=== PATIENT | male | born 1970 | race Caucasian/White ===

== ENCOUNTER 2017-06-25 12:14 | Inpatient (IN) | payer OTHER ==
[2017-06-25] VITALS (8 sets, daily range): BP systolic 158–198; BP diastolic 111–144
[~2017-06-25] VITALS: Ht 175.3 cm; Wt 99.3 kg
--- NOTE | ~2017-06-25 | EKG ---
[place] [address] ELECTROCARDIOGRAM REPORT Name: SCARLET RICHARDS Room: [address] ADM IN [facility].#: [id number] Admission: 06/25/17 Attend Phys: Quoc Leal MD, F Discharge: Date of : 72 Report #: [id number] THIS REPORT FOR: //name// [facility] Test Date: 2017-06-25 Test Time: 15:28:57 Pat Name: PATRICIAMARIONBART RICHARDS Department: Room: [facility] Gender: M Pastry Wrapper: LISA : 1970 Requested By: Delta Church Order Number: [id number] MD: Measurements Intervals [place] Rate: 111 P: 73 MO: 152 QRS: 63 QRSD: 84 T: 84 QT: 323 QTc: 439 Interpretive Statements Sinus tachycardia Anterolateral infarct, acute (LAD) Compared to ECG 08/08/2016 08:08:30 Prolonged QT interval no longer present Myocardial infarct finding still present [email or web address] By: 1528 1528 Epiphany Epiphany, /EPI
[~2017-06-25 12:14] MED LIST: ASPIR 8181 MG PO; ATORVASTATIN CA40 MG PO; COREG6.25 MG PO; EFFIENT10 MG PO; LISINOPRIL10 MG PO; NITROGLYCERIN0.4 MG PO; PLAVIX 75 MG TA75 M1 PO; TYLENOL325 MG PO
[2017-06-25 12:36] LABS: ABSOLUTE BASOPHILS 0.1 thou/uL (0.0-0.2); ABSOLUTE EOSINOPHILS 0.6 thou/uL (0.0-0.7); ABSOLUTE LYMPHOCYTES 4.6 thou/uL (0.8-5.3); ABSOLUTE MONOCYTES 1.3 thou/uL (0.0-1.2); ABSOLUTE NEUTROPHILS 11.7 thou/uL (1.6-8.1); BASOPHILS 0.6 %; EOSINOPHILS 3.1 %; HEMATOCRIT 47.6 % (42.0-52.0); MCH 27.3 pg (26.0-34.0); MCHC 33.7 g/dL (28.0-37.0); MONOCYTES 7.3 %; MPV 7.9 fl. (7.2-11.1); NUCLEATED RBCS 0 /100WBC; PLATELET COUNT* 341 thou/uL (150-400); RBC 5.87 mil/uL (4.50-6.00); RDW-CV 14.3 % (10.5-14.5); WBC 18.3 thou/uL (4.0-11.0)
[2017-06-25 12:45] LABS: ANION GAP 18 mmol/L (7-16); BUN 13 mg/dL (7-18); CALCIUM 9.1 mg/dL (8.5-10.1); CHLORIDE 102 mmol/L (98-107); CO2 16 mmol/L (21-32); CREATININE 1.3 mg/dL (0.6-1.3); GLUCOSE 183 mg/dL (70-99); POTASSIUM 3.2 mmol/L (3.5-5.1); SODIUM 136 mmol/L (136-145)
[2017-06-25 12:48] LABS: APTT 24.6 Seconds (25.0-31.3); INR 1.1; PROTIME 10.3 Seconds (9.20-11.50)
[2017-06-25 13:04] LABS: ALBUMIN 3.8 g/dL (3.4-5.0); ALKALINE PHOSPHATASE 87 U/L (46-116); CK-MB MASS < 0.5 ng/mL (<0.5-3.6); LIPASE 391 U/L (73-393); MAGNESIUM 1.7 mg/dL (1.8-2.4); NT-PRO BRAIN NAT PEPTIDE 30 pg/mL (<300); SGOT 22 U/L (15-37); SGPT 36 U/L (30-65); TOTAL BILIRUBIN 0.8 mg/dL (<0.1-1.0); TOTAL PROTEIN 8.1 g/dL (6.4-8.2); TROPONIN-I LEVEL <0.06 ng/mL (<0.06)
--- NOTE | 2017-06-25 16:42 | EKG ---
[place] [address] ELECTROCARDIOGRAM REPORT Name: SCARLET RICHARDS Room: [address] ADM IN .R.#: [id number] Admission: 06/25/17 Attend Phys: Quoc Leal MD, F Discharge: Date of : 72 Report #: [id number] THIS REPORT FOR: //name// [facility] Test Date: 2017-06-25 Test Time: 15:28:57 Pat Name: SCARLET RICHARDS Department: Room: [address] Gender: M Website Programmer: LISA : 1970 Requested By: Quoc Leal Order Number: [id number] Sameer MD: Quoc Leal Measurements Intervals [place] Rate: 111 P: 73 SC: 152 QRS: 63 QRSD: 84 T: 84 QT: 323 QTc: 439 Interpretive Statements Sinus tachycardia Anterolateral infarct, acute (LAD) Compared to ECG 08/08/2016 08:08:30 Prolonged QT interval no longer present Myocardial infarct finding still present Electronically Signed On 06-25-2017 16:42:01 ROLL RECLAIMER by Quoc Leal [email or web address] <ELECTRONICALLY SIGNED> By: Quoc Leal MD, [facility] 06/25/17 1642 1528 1528 Quoc Leal MD, [facility] /EPI
--- NOTE | 2017-06-25 17:35 | CARD ---
[address] [address] CARDIAC CATH REPORT Name: SCARLET RICHARDS Room: [address] IN [facility]#: [id number] Admission: 06/25/17 Attend Phys: Quoc Leal MD, F Discharge: Date of : 72 Report #: [id number] THIS REPORT FOR: //name// APPROVED REPORT Patient Details Patient Status: ED Room #: The patient is a 46 year-old male Event Personnel Quoc Leal Dip Stand Loader, Taisha Quintero RN Tractor Engine Assembler, Quang Wagner Langston, Anthony ARRT (R) Monitor Procedures Performed INDIGO Place w/wo Plasty Single LAD Indication STEMI (>0 to less than or equal to 6 hours) Risk Factors Arterial Hypertension, Hypercholesterolemia Previous Procedures/Diagnoses Previous PCI, Previous IL Admission/Lab Medications/Medications given during procedure Platelet Aff. Inhib., Heparin Unfract. Procedure Narrative The patient was brought emergently to the Cardiac Catheterization Laboratory and was prepped and draped in a sterile manner. The right femoral was infiltrated with 1% Lidocaine subcutaneous anesthesia. A 6fr Ultimum Sheath sheath was inserted into the Right Femoral Artery. Coronary angiography was performed using coronary diagnostic catheters. The right coronary system was accessed and visualized with a Diagnostic 3DRC catheter. The left coronary system was accessed and visualized with a Diagnostic JL4 catheter. The left ventricle was accessed and visualized with a Diagnostic Angled Pig catheter. Left ventricular/Aortic Valve gradient assessed via catheter pullback. Left ventriculogram was performed in ALBARADO projection. Closure device was deployed with a 6 Fr Angioseal STS. The patient tolerated the procedure well and there were no complications associated with the procedure. There was no hematoma[place] [address] CARDIAC CATH REPORT Name: SCARLET RICHARDS Room: [address] IN [facility]#: [id number] Admission: 06/25/17 Attend Phys: Quoc Leal MD, F Discharge: Date of : 72 Report #: [id number] Sedation start time: 12:27 Case end Time: 13:23 Fentanyl 75 mcg Versed 4 mg Fluoro Time: 14.0 minutes Dose: DAP 990286 cGycm2 2658 mGy Contrast Type and Amount: Visipaque 345 ml Coronary Angiography The patient's coronary anatomy is co- dominant. Diagnostic Cath Left Main 0% stenosis LAD proximal stent noted that covered the takeoff of the diagonal branch Lad appeared acutely occluded proximal to the stent Diagonal 1 stent noted in the ostium that was completely occluded Circumflex 0% stenosis OM1 small vessel with 80% long stenosis Right Coronary mid stent noted without restenosis Left Ventriculography The left ventricular ejection fraction is estimated to be 25-30%. Left ventricular wall motion abnormalities are present. There is no mitral insufficiency. akinesis noted of the mid and distal anterior wall and apex Hemodynamics The aortic pressure is 172/113 mmHg with a mean of 95 mmHg. The left ventricular pressure is 163/12 mmHg with a mean of mmHg. The left ventricular end diastolic pressure is 24 mmHg. There was no gradient across the aortic valve upon pullback. Pullback from the left ventricle to the aorta revealed no gradient across the aortic valve. PCI Technique Lesion Anticoagulation was achieved with Heparin. Patient was preloaded with Heparin IV 6000 units. Percutaneous coronary intervention was performed on the proximal left anterior descending artery segment. A 6F XB LAD 3.5 Guide Catheter was used to engage the ostium. A IG: BMW 190cm Interventional Guidewire was used to cross the lesion. BALLOON DILATION A Balloon catheter Trek RX 2.5 X 8 was inserted and inflated up to 16.00atm for 14seconds. Additional Inflation: 16.00at[place] [address] CARDIAC CATH REPORT Name: SCARLET RICHARDS Room: [address]#: [id number] Admission: 06/25/17 Attend Phys: Quoc Leal MD, F Discharge: Date of : 72 Report #: [id number] 7seconds. STENT DEPLOYMENT A drug-eluting stent Xience Alpine RX 2.75X18 was inserted and inflated up to 10.00atm for 13seconds. Additional Inflation: 11.00atm for 11seconds. PCI Technique Lesion Anticoagulation was achieved with . iv aggrastat was given BALLOON DILATION A Balloon catheter was inserted and inflated up to 14atm for 15seconds. Repeat angiography revealed the following post-dilatation results: 80% stenosis. STENT DEPLOYMENT A drug-eluting stent 2.75 x 18 mm was inserted and inflated up to 16atm for 15seconds. Repeat angiography revealed the following post-stent deployment results: 0% stenosis. Final angiography reveals 0 % stenosis with SOPHIE 3 flow. PCI Technique Lesion 2 Percutaneous Coronary Intervention was performed on the first diagnonal branch segment. Percutaneous coronary intervention was performed on the first diagonal branch segment. The lesion stenosis prior to intervention was 100% with SOPHIE 3 flow. A 6F XB LAD 3.5 Guide Catheter was used to engage the lm ostium. A IG: BMW 190cm Interventional Guidewire was used to cross the lesion. Balloon Dilation A Balloon catheter Mini Trek RX 2.0 X 8 was inserted and inflated up to 8.00atm for 7seconds. Repeat angiography revealed the following post-dilatation results: 80% stenosis. although the stent in the diagonal artery was wired, a balloon could not be advanced into the vessel. After a stent was placed in the lad, the diagonal artery was rewired with a whisper wire, but still a balloon could not be advanced into the diagonal stent. This appeared to be secondary to the stent struts in the lad, or previous crushing of the proximal portion of the stent in the diagonal artery. Final angiography reveals 80 % stenosis with SOPHIE 3 flow. Conclusion 1. Acute occlusion of the proximal lad [place] [address] CARDIAC CATH REPORT Name: SCARLET RICHARDS Room: [address] IN [facility]#: [id number] Admission: 06/25/17 Attend Phys: Quoc Leal MD, F Discharge: Date of : 72 Report #: [id number] stent. 2. no restenosis of a stent in the rca 3. successful placement of a stent in the proximal lad 4. although there was reperfusion of the 1st diagonal branch that arose from within the stent in the lad, a balloon could not be advanced into the vessel despite successful placement of a wire into the vessel. Residual ostial diagonal stenosis of 80%. Recommendations Cardiac Rehabilitation Referral Aggressive Medical Therapy <ELECTRONICALLY SIGNED> By: Quoc Leal MD, [facility] 06/25/17 1734 1734 1734Dhollie Leal MD, FACC /INF
[2017-06-26] VITALS (17 sets, daily range): BP systolic 119–161; BP diastolic 86–113
[2017-06-26 05:23] LABS: HEMATOCRIT 45.3 % (42.0-52.0); HEMOGLOBIN 15.2 gm/dL (14.0-18.0); MCH 27.4 pg (26.0-34.0); MCHC 33.5 g/dL (28.0-37.0); MCV 81.8 fL (80.0-100.0); RBC 5.54 mil/uL (4.50-6.00); RDW-CV 14.7 % (10.5-14.5); WBC 19.7 thou/uL (4.0-11.0)
[2017-06-26 06:27] LABS: ANION GAP 14 mmol/L (7-16); BUN 14 mg/dL (7-18); CALCIUM 9.2 mg/dL (8.5-10.1); CHLORIDE 103 mmol/L (98-107); CHOLESTEROL 166 mg/dL (<200); CO2 22 mmol/L (21-32); CREATININE 0.9 mg/dL (0.6-1.3); GLUCOSE 190 mg/dL (70-99); HDL CHOLESTEROL 37 mg/dL (>40); LDL CHOLESTEROL 115 mg/dL (<100); SODIUM 139 mmol/L (136-145); TC:HDL 4.5 Ratio (Not establshd); TRIGLYCERIDE 73 mg/dL (<150); VLDL 15 mg/dL (<40)
[2017-06-26 06:29] LABS: POTASSIUM 4.4 mmol/L (3.5-5.1); SERUM ASSESSMENT Clear
[2017-06-26 06:30] LABS: TROPONIN-I LEVEL 92.81 ng/mL (<0.06)
--- NOTE | 2017-06-26 12:57 | EKG ---
[place] [address] ELECTROCARDIOGRAM REPORT Name: SCARLET RICHARDS Room: [address] ADM IN [facility]#: [id number] Admission: 06/25/17 Attend Phys: Quoc Leal MD, F Discharge: Date of : 72 Report #: [id number] THIS REPORT FOR: //name// [facility] Test Date: 2017-06-25 Test Time: 21:18:38 Pat Name: SCARLET RICHARDS Department: Room: [facility] Gender: M Chocolate Molder: DAVONTE SANDOVAL : 1970 Requested By: Quoc Leal Order Number: [id number] Reading MD: Quoc Leal Measurements Intervals [place] Rate: 165 P: 93 VT: 172 QRS: 36 QRSD: 73 T: 92 QT: 274 QTc: 454 Interpretive Statements Supraventricular tachycardia Abnormal lateral Q waves Probable anteroseptal infarct, recent Compared to ECG 06/25/2017 15:28:57 Atrial abnormality now present Myocardial infarct finding still present Electronically Signed On 06-26-2017 12:57:36 MECHANICAL INTEGRITY SPECIALIST by Quoc Leal [email or web address] <ELECTRONICALLY SIGNED> By: Quoc Leal MD, FACC 06/26/17 1257 17 17 Quoc Leal MD, FAC /EPI
--- NOTE | 2017-06-26 13:04 | EKG ---
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
[2017-06-26 18:58] LABS: CALCIUM 9.2 mg/dL (8.5-10.1); POTASSIUM 4.2 mmol/L (3.5-5.1)
[2017-06-26 21:12] LABS: GLYCOHEMOGLOBIN (HGB A1C) 6.4 % (4.8-5.6)
[2017-06-27] VITALS (12 sets, daily range): BP systolic 111–139; BP diastolic 79–103
--- NOTE | 2017-06-27 10:37 | EKG ---
[place] [address] ELECTROCARDIOGRAM REPORT Name: SCARLET RICHARDS Room: [address] ADM IN [facility]#: [id number] Admission: 06/25/17 Attend Phys: Quoc Leal MD, F Discharge: Date of : 72 Report #: [id number] THIS REPORT FOR: //name// [facility] Test Date: 2017-06-27 Test Time: 08:19:10 Pat Name: SCARLET RICHARDS Department: Room: [facility] Gender: M Associate Software Application Engineer: : 1970 Requested By: Quoc Leal Order Number: [id number] Reading MD: Quoc Leal Measurements Intervals [place] Rate: 98 P: 25 WI: 142 QRS: 19 QRSD: 85 T: 154 QT: 499 QTc: 638 Interpretive Statements Sinus rhythm Anterior infarct, recent Lateral leads are also involved Prolonged QT interval Compared to ECG 06/26/2017 08:52:38 Sinus tachycardia no longer present Myocardial infarct finding still present Electronically Signed On 06-27-2017 10:37:26 PARALEGAL ASSISTANT by Quoc Leal [email or web address] <ELECTRONICALLY SIGNED> By: Quoc Leal MD, [facility] 06/27/17 1037 08 08 Quoc Leal MD, [facility] /EPI
[2017-06-27] MEDS ORDERED: CARVEDILOL12.5 MG PO (10:45)
[2017-06-27] MEDS ORDERED: LISINOPRIL5 MG PO (10:45)
[2017-06-27] MEDS ORDERED: ALDACTONE25 MG PO (10:51)
--- NOTE | 2017-06-27 18:15 | H ---
[address] [address] HISTORY AND PHYSICAL Name: SCARLET RICHARDS Room: [address] IN [facility]#: [id number] Admission: 06/25/17 Attend Phys: Quoc Leal MD, F Discharge: 06/27/17 Date of : 72 Report #: [id number] THIS REPORT FOR: //name// CC: Quoc Leal [facility] physician/PCP DATE OF SERVICE: 06/25/2017 HISTORY OF PRESENT ILLNESS: The patient is a 46-year-old single white male who came to the Emergency Room complaining of chest pain. The patient initially presented here to [facility] in July 2015. He had no previous history of heart disease. He did have a history of hypertension, but had never been on medications. He was a smoker at that time. Unfortunately, had no medical insurance. He presented with prolonged chest pain. ECG showed evidence of an acute high lateral STEMI. Dr. Christine took him urgently to the lab specialist. The codominant right coronary artery had no high-grade stenosis. The circumflex gave off a large first marginal branch, a long 80% stenosis. The LAD gave off first diagonal branch, had a discrete 90% ostial stenosis with thrombus. I placed a single bare-metal stent in the diagonal artery. Ejection fraction is 25%. He was loaded with Plavix. He was then noted to have a peak troponin. He was discharged on carvedilol 6.25 mg twice a day, Lipitor 40 mg a day, aspirin 81 mg a day, Plavix 75 mg a day, lisinopril 10 mg a day. He did return to our office for followup. He then presented a year later in August 2016 with intermittent chest pain. He had stopped taking his medication 2 weeks prior to admission. ECG showed evidence of anterior STEMI. Dr. Hanson took him to the lab specialist and was noted to have a 90% mid LAD stenosis with thrombus. He then placed a drug-eluting stent in the LAD and performed balloon angioplasty of the ostium of the diagonal. Dr. Hanson then brought him back several days later and placed a drug-eluting stent in the mid right coronary artery. Ejection fraction 45%. The LAD stent had no restenosis. The patient was then discharged on Effient. He notes he then did well with only intermittent chest pain. Unfortunately, he ran out of his medications 2 months ago. He has been taking the aspirin and Plavix. He was at home today when he felt a pain in his chest, became short of breath, nauseated, diaphoretic. Paramedics were called. ECG showed evidence of an anterior STEMI. He was brought to [facility] on an urgent basis. He denies recent exertional dyspnea, palpitations, syncope, bleeding. PAST MEDICAL HISTORY: Otherwise significant for no major surgical procedures. He does have a history of hypertension and hyperlipidemia. CURRENT MEDICATIONS: Include only aspirin and Plavix. ALLERGIES: He has no known drug allergies. FAMILY HISTORY: [place] [address] HISTORY AND PHYSICAL Name: SCARLET RICHARDS Room: [address]#: [id number] Admission: 06/25/17 Attend Phys: Quoc Leal MD, F Discharge: 06/27/17 Date of : 72 Report #: [id number] SOCIAL HISTORY: He is single, never been and lives in [place]. 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 He has no insurance. Quit smoking after his first heart attack. He does use vaporized drugs. No alcohol abuse. He smokes marijuana occasionally. REVIEW OF SYSTEMS: No history of stroke, asthma, peptic ulcer disease, liver disease, kidney disease, cancer, psychiatric illness. PHYSICAL EXAMINATION: GENERAL: Revealed a middle-aged male who appeared in mild distress. VITAL SIGNS: Blood pressure 130/70, pulse is 90. HEENT: Mucous membranes moist. He is anicteric. Conjunctivae pink. NECK: Veins nondistended. No carotid bruits. CHEST: Clear to auscultation. CARDIOVASCULAR: Regular rate and rhythm without murmur. ABDOMEN: Soft, nontender. EXTREMITIES: Had no edema. Posterior tibial pulse 2+ bilaterally. SKIN: Warm, dry. NEUROLOGIC: Nonfocal. His ECG done by the paramedics, sinus rhythm, ST segment elevation V2 through V6. LABORATORY DATA: Today, sodium 136, potassium is only 3.2, BUN 13, glucose 183. Liver function studies are normal. Troponin 0.06. White blood cell count 18.3, hemoglobin 16.0. IMPRESSION AND RECOMMENDATIONS: 1. Anterior ST-elevation myocardial infarction. Recommend cardiac catheterization. 2. Hypertension. The patient ran out of his beta raulito and EBONI inhibitor. 3. Hyperlipidemia. The patient ran out of his statin drug. 4. Previous tobacco abuse. Fortunately, the patient no longer smokes. 5. Cardiomyopathy. The patient has been on an EBONI inhibitor and beta raulito. <ELECTRONICALLY SIGNED> By: Quoc Leal MD, FACC 06/27/17 1815 1353 1448Dadimitry Leal MD, FACC /nt
--- NOTE | 2017-07-08 12:38 | D ---
[address] [address] DISCHARGE SUMMARY Name: SCARLET RICHARDS Room: [address] IN ..#: [id number] Admission: 06/25/17 Attend Phys: Quoc Leal MD, F Discharge: 06/27/17 Date of : 72 Report #: [id number] THIS REPORT FOR: //name// CC: Quoc Leal [facility] physician/PCP DATE OF SERVICE: 06/27/2017 DISCHARGE DIAGNOSES: 1. Acute anterior wall ST segment elevation myocardial infarction. 2. Coronary artery disease. 3. Ischemic cardiomyopathy. 4. Atrial tachycardia. 5. Nonsustained ventricular tachycardia. 6. Previous tobacco abuse. CONSULTANTS: None. PROCEDURES: Emergent left heart catheterization with placement of a single drug-eluting stent left anterior descending artery via the femoral approach. HISTORY OF PRESENT ILLNESS: The patient is a 46-year-old single white male who came to the Emergency Room complaining of chest pain. The patient had a previous history of high blood pressure and smoking. He presented to [place] in 07/[address] segment elevation, high lateral myocardial infarction. He was seen by my partner, Dr. Christine and taken urgently to the cathode washer. Results showed a diagonal branch of the LAD that had a 90% proximal stenosis with thrombus. I performed balloon angioplasty and placed a single bare metal stent in the diagonal artery. Ejection fraction only 25%. His post-[place] course was uncomplicated. Unfortunately, he had no medical insurance. He was discharged on carvedilol, Lipitor, aspirin, Plavix, lisinopril. Unfortunately, the patient only returned once because of his lack of insurance. He then presented in 08/2016 after stopping all of his medications. He complained of chest pain, again was found to have anterior ST segment elevation myocardial infarction. He was seen urgently by my partner, Dr. Hanson at 4:00 in the morning. Urgent heart catheterization showed a 90% mid LAD where he placed a new drug-eluting stent. There was difficulty getting by the stent in the ostium of the diagonal branch. Apparently, he was able to dilate the ostium of the diagonal artery. This was consistent with in-stent restenosis. The right coronary had 80% stenosis and he brought him back to the cathode washer a day later and placed a stent in the right coronary artery. The patient was switched from Plavix to Effient and was discharged. Again, he had no insurance and stopped taking his medications a couple of months ago other than the aspirin and Plavix. He tried to go to [facility] but was unable to get into the clinic. He states he has had occasional chest pain. On the day of admission about 12:00 noon; however, he had severe chest pain, became diaphoretic [place] [address] DISCHARGE SUMMARY Name: SCARLET RICHARDS Room: [address] IN [facility]#: [id number] Admission: 06/25/17 Attend Phys: Quoc Leal MD, F Discharge: 06/27/17 Date of : 72 Report #: [id number] He called paramedics. He was found to have an evidence of an acute anterior STEMI which was activated. I was asked to see him on an emergent basis. He denies any recent fever, cough, bleeding. PAST MEDICAL HISTORY: Otherwise, significant for no other major surgical procedures. MEDICATIONS: He currently is taking only aspirin and Plavix. PHYSICAL EXAMINATION: VITAL SIGNS: His blood pressure was 180/100, pulse is 100. He was afebrile. HEENT: Mucous membranes are moist. CHEST: Clear to auscultation. CARDIAC: Regular rate and rhythm. ABDOMEN: Soft. EXTREMITIES: Had no edema. SKIN: Warm and dry. ECG showed sinus rhythm, anterior ST segment elevation. His workup included a chest x-ray that showed cardiomegaly, mild pulmonary vascular congestions. LABORATORY WORK: Sodium 135, blood sugar 140. Liver function studies were normal. His troponin on admission was 0.06. Cholesterol 166, triglyceride 73, HDL 37, LDL 115. White blood cell count 18.3, hemoglobin 16. HOSPITAL COURSE: The patient brought urgently to the cathode washer. I performed left heart catheterization from the right femoral artery. Results: There was a stent in the proximal LAD that covered the takeoff of the first diagonal branch. The LAD was completely occluded just proximal to the stent after the left main artery. Circumflex had no significant disease. The right coronary had a stent with no significant restenosis. I then performed emergent angioplasty reperfusion of the LAD that had clots. He was given IV heparin and Aggrastat. He claims he had been taking his Plavix. I then attempted angioplasty of the takeoff of the diagonal branch. However, I was not going through 2 stents as well as a stent in the ostium of the diagonal. Although I was able to wire the diagonal, I could not advance a balloon into the diagonal. Final arteriogram showed residual ostial stenosis 80% of the diagonal branch. It is decided to abandon further attempts at balloon angioplasty of the diagonal artery. He actually tolerated the procedure well and had no heart failure following the procedure. Ejection fraction, however, was only 25%. The patient had an Angio-Seal placed. He was then placed in the ICU. He had some persistent chest pain that resolved. Next day, the patient appeared to have an episode of an atrial tachycardia that did not respond to adenosine. I could not rule out atrial flutter. He was started on amiodarone. That night, he had an episode of nonsustained ventricular tachycardia up to 18 beats. He was started on his EBONI inhibitor, spironolactone and a beta-raluito. [place] [address] DISCHARGE SUMMARY Name: SCARLET RICHARDS Room: [address]#: [id number] Admission: 06/25/17 Attend Phys: Quoc Leal MD, F Discharge: 06/27/17 Date of : 72 Report #: [id number] drug. He was seen by the lead case manager because of lack of insurance. His prognosis is guarded due to his ischemic cardiomyopathy. Additional lab work during his hospitalization included an elevated blood sugar of 154 consistent with glucose intolerance. His peak troponin was 92 after he occluded his proximal LAD. TSH is 0.2, T4 1.25. Glycosylated hemoglobin was 6.4, again consistent with glucose intolerance. Followup hemoglobin was 15.2. The results of the hospitalization were discussed with the patient. He is felt to have a stent in the diagonal artery, 2 stents in the LAD and a stent in the right coronary artery. He is felt to have an ischemic cardiomyopathy. His prognosis is obviously guarded. Unfortunately, he had no medical insurance. I did recommend he attempt to obtain a primary care physician. He is scheduled to return to see my nurse practitioner in 1 week. He was not to do any aerobic exercise in the next few weeks and gradually increased his activity. He was to contact my office with recurrent chest pain, shortness of breath, bleeding or palpitations. If the patient obtains insurance in the future, he would be a candidate for defibrillator. DISCHARGE MEDICATIONS: He was discharged on lisinopril 10 mg twice a day, carvedilol 12.5 mg twice a day, spironolactone 25 mg a day, Plavix 75 mg a day, aspirin 81 mg a day, Lipitor 40 mg a day. At the time of discharge, he had a blood pressure of 130/90, his pulse is 90, he is afebrile. I did recommend he enroll in cardiac rehabilitation. 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 I recommend he continue to refrain from cigarettes and avoid the vapor that he was now using as well. <ELECTRONICALLY SIGNED> By: Quoc Leal MD, [facility] 07/08/17 1238 1615 1819Dadimitry Leal MD, [facility] /nt
== END 2017-06-27 13:42 | disposition home or self-care (01) | DRG 247 ==
LOC: M.ERS 12:14 → M.ICU 13:49 → M.TBA-CV 13:49 → M.ICU 14:20 → M.TBA-ER 06-26 12:14 → M.ICU 06-26 12:14
PROVIDERS: Family Medicine; Internal Medicine Cardiovascular Disease; ADMIT Internal Medicine Cardiovascular Disease
PROC: 4A023N7 Measurement of Cardiac Sampling and Pressure, Left Heart, Percutaneous Approach (ICD-10-PCS; principal; 2017-06-25)
PROC: 027034Z Dilation of Coronary Artery, One Artery with Drug-eluting Intraluminal Device, Percutaneous Approach (ICD-10-PCS; 2017-06-25)
PROC: B2111ZZ Fluoroscopy of Multiple Coronary Arteries using Low Osmolar Contrast (ICD-10-PCS; 2017-06-25)
PROC: B2151ZZ Fluoroscopy of Left Heart using Low Osmolar Contrast (ICD-10-PCS; 2017-06-25)
DX: I21.09 ST elevation (STEMI) myocardial infarction involving other coronary artery of anterior wall (principal); I47.1 Supraventricular tachycardia; E78.5 Hyperlipidemia, unspecified; I10 Essential (primary) hypertension; I25.10 Atherosclerotic heart disease of native coronary artery without angina pectoris; I25.5 Ischemic cardiomyopathy; Z82.49 Family history of ischemic heart disease and other diseases of the circulatory system; Z87.891 Personal history of nicotine dependence

== ENCOUNTER 2017-07-02 11:12 | Inpatient (IN) | payer OTHER ==
[2017-07-02] VITALS (16 sets, daily range): BP systolic 112–175; BP diastolic 51–135
[~2017-07-02] VITALS: Ht 175.3 cm; Wt 99.8 kg
[~2017-07-02 11:12] MED LIST changes: +ALDACTONE25 MG PO; +CARVEDILOL12.5 MG PO; +LISINOPRIL5 MG PO
[2017-07-02 11:28] LABS: ABSOLUTE BASOPHILS 0.1 thou/uL (0.0-0.2); ABSOLUTE EOSINOPHILS 0.1 thou/uL (0.0-0.7); ABSOLUTE NEUTROPHILS 13.9 thou/uL (1.6-8.1); BASOPHILS 0.4 %; EOSINOPHILS 0.4 %; HEMATOCRIT 47.2 % (42.0-52.0); HEMOGLOBIN 15.9 gm/dL (14.0-18.0); LYMPHOCYTES 11.6 %; MCH 27.4 pg (26.0-34.0); MCHC 33.6 g/dL (28.0-37.0); MCV 81.3 fL (80.0-100.0); MONOCYTES 5.8 %; MPV 8.2 fl. (7.2-11.1); NUCLEATED RBCS 0 /100WBC; PLATELET COUNT* 375 thou/uL (150-400); POLYS 81.8 %; RBC 5.81 mil/uL (4.50-6.00); RDW-CV 14.3 % (10.5-14.5); WBC 16.9 thou/uL (4.0-11.0)
[2017-07-02 11:36] LABS: CALCIUM 9.6 mg/dL (8.5-10.1); CREATININE 1.2 mg/dL (0.6-1.3)
[2017-07-02 11:51] LABS: APTT 26.1 Seconds (25.0-31.3); INR 1.1; PROTIME 10.5 Seconds (9.20-11.50)
[2017-07-02 11:53] LABS: ALBUMIN 3.8 g/dL (3.4-5.0); MAGNESIUM 1.9 mg/dL (1.8-2.4); TOTAL BILIRUBIN 0.9 mg/dL (<0.1-1.0); TOTAL PROTEIN 8.5 g/dL (6.4-8.2)
[2017-07-02 11:55] LABS: TROPONIN-I LEVEL 2.04 ng/mL (<0.06)
[2017-07-03] VITALS (11 sets, daily range): BP systolic 89–145; BP diastolic 53–101
[2017-07-03 05:37] LABS: HEMATOCRIT 42.2 % (42.0-52.0); HEMOGLOBIN 14.2 gm/dL (14.0-18.0); MCH 27.3 pg (26.0-34.0); MCHC 33.6 g/dL (28.0-37.0); MCV 81.2 fL (80.0-100.0); MPV 8.4 fl. (7.2-11.1); RBC 5.2 mil/uL (4.50-6.00)
[2017-07-03 06:10] LABS: ANION GAP 13 mmol/L (7-16); BUN 13 mg/dL (7-18); CALCIUM 8.9 mg/dL (8.5-10.1); CHLORIDE 100 mmol/L (98-107); CHOLESTEROL 94 mg/dL (<200); CO2 22 mmol/L (21-32); CREATININE 0.9 mg/dL (0.6-1.3); GLUCOSE 153 mg/dL (70-99); HDL CHOLESTEROL 35 mg/dL (>40); LDL CHOLESTEROL 46 mg/dL (<100); POTASSIUM 4.2 mmol/L (3.5-5.1); SODIUM 135 mmol/L (136-145); TC:HDL 2.7 Ratio (Not establshd); TRIGLYCERIDE 69 mg/dL (<150); VLDL 14 mg/dL (<40)
[2017-07-03 06:11] LABS: SERUM ASSESSMENT Clear
[2017-07-03 06:18] LABS: TROPONIN-I LEVEL 47.65 ng/mL (<0.06)
--- NOTE | 2017-07-03 06:23 | NUR ---
ASSUMED CARE OF PT AT 1900 PT ALERT AND ORIENTED X4. VS AND ASSESSMENT AT BASELINE FOR PT. ST ON THE MONITOR. R GROIN DRSG SATURATED WITH OLD BLOOD AREA SOFT NO HEMATOMA, CHANGED CMS CHECKS TO RLE WNL. PT HAD PRN PAIN MEDS TWICE FOR CHEST PAIN THAT IS NOT NEW OR INCREASED. WILL CONTINUE PLAN OF CARE
--- NOTE | 2017-07-03 12:06 | 2DMMODE ---
[place] [address] 2 D/M-MODE ECHOCARDIOGRAM Name: SCARLET RICHARDS [facility]#: [id number] Admission: 07/02/17 Attend Phys: Lucia Peña Discharge: Date of : 72 Date of Service: 07/03/17 1205 Report #: [id number] THIS REPORT FOR: //name// APPROVED REPORT Study performed: 07/03/2017 09:28:12 EXAM: Comprehensive 2D, Doppler, and color-flow Echocardiogram Patient Location: In-Patient Room #: 003 Status: routine BSA: 2.15 HR: 104 bpm BP: 110/77 mmHg Rhythm: NSR Other Information Study Quality: Good Indications Acute AL 2D Dimensions LVEF(%): 29.07 (>50%) IVSd: 16.47 (7-11mm) LVOT Diam: 20.19 (18-24mm) LVDd: 51.13 mm PWd: 10.70 (7-11mm) Ascending Ao: 34.07 (22-36mm) LVDs: 44.14 (25-40mm) Aortic Root: 32.43 mm Anderson's LVEF: 29.07 % Volumes Left Atrial Volume (Systole) LA ESV Index: 18.30 mL/m2 Aortic Valve AoV Peak Silvio.: 1.59 m/s AO Peak Gr.: 10.10 mmHg LVOT Max P.10 mmHg AO Mean Gr.: 6.08 mmHg LVOT Mean P.91 mmHg LVOT Max V: 1.23 m/s AO V2 VTI: 23.41 cm LVOT Mean V: 0.78 m/s GUANAKO (VTI): 2.48 cm2 LVOT V1 VTI: 18.14 cm Mitral Valve E/A Ratio: 0.62 [place] [address] 2 D/M-MODE ECHOCARDIOGRAM Name: SCARLET RICHARDS Room: [address] IN .R.#: [id number] Admission: 07/02/17 Attend Phys: Lucia Peña Discharge: Date of : 72 Date of Service: 07/03/17 1205 Report #: [id number] MV Decel. Time: 163.34 ms MV E Max Silvio.: 0.73 m/s MV PHT: 47.37 ms MVA (PHT): 4.64 cm2 TDI E/Lateral E': 10.43 E/Medial E': 14.60 Medial E' Silvio.: 0.05 m/s Lateral E' Silvio.: 0.07 m/s Pulmonary Valve PV Peak Silvio.: 1.31 m/s PV Peak Gr.: 6.84 mmHg Left Ventricle The left ventricle is normal size. There is severe hypokinesis to akinesis in the distal anterior wall anteroseptal wall and apex. Mild to moderate concentric hypertrophy. Left ventricular systolic function is moderately decreased. LVEF is 35-40%. Grade I - abnormal relaxation pattern. Right Ventricle The right ventricle is normal size. The right ventricular systolic function is normal. Atria Left atrium is mildly dilated. The right atrium size is normal. Aortic Valve The aortic valve is normal in structure. No aortic regurgitation is present. There is no aortic valvular stenosis. Mitral Valve The mitral valve is normal in structure. Mild mitral regurgitation. No evidence of mitral valve stenosis. Tricuspid Valve The tricuspid valve is normal in structure. Trace tricuspid regurgitation. Pulmonic Valve The pulmonary valve is normal in structure. There is no pulmonic valvular regurgitation. Great Vessels The aortic root is normal in size. IVC [place] [address] 2 D/M-MODE ECHOCARDIOGRAM Name: SCARLET RICHARDS Room: [address] IN ..#: [id number] Admission: 07/02/17 Attend Phys: Lucia Peña Discharge: Date of : 72 Date of Service: 07/03/17 1205 Report #: [id number] collapses with >50% inspiration Pericardium There is no pericardial effusion. <Conclusion> The left ventricle is normal size. Mild to moderate concentric hypertrophy. Left ventricular systolic function is moderately decreased. LVEF is 35-40%. Grade I - abnormal relaxation pattern. There is severe hypokinesis to akinesis in the distal anterior wall anteroseptal wall and apex. Left atrium is mildly dilated. IVC is normal in size and collapses with >50% inspiration <ELECTRONICALLY SIGNED> By: Alan Christine MD, FACC 07/03/171204 04 04 Alan Christine MD, FACC /INF
--- NOTE | 2017-07-03 12:43 | EKG ---
[place] [address] ELECTROCARDIOGRAM REPORT Name: SCARLET RICHARDS Room: [address] ADM IN M.R.#: [id number] Admission: 07/02/17 Attend Phys: Duong Hanson MD, Discharge: Date of : 72 Report #: [id number] THIS REPORT FOR: //name// [facility] ED Test Date: 2017-07-02 Test Time: 11:14:41 Pat Name: SCARLET MAURICE Department: Room: [facility] Gender: M Finishing Powder Press Operator: Derick PEREZ : 1970 Requested By: Rafa Renteria Order Number: [id number] MD: Alan Christine Measurements Intervals [place] Rate: 100 P: 50 NC: 151 QRS: 2 QRSD: 80 T: -26 QT: 352 QTc: 454 Interpretive Statements Sinus tachycardia Anterolateral infarct, acute (LAD) Compared to ECG 06/27/2017 08:19:10 Sinus rhythm no longer present Prolonged QT interval no longer present Myocardial infarct finding still present Electronically Signed On 07-03-2017 12:43:44 DIRECTOR OF LOSS PREVENTION by Alan Christine [email or web address] <ELECTRONICALLY SIGNED> By: Alan Christine MD, FACC 07/03/17 1243 1114 1114 Alan Christine MD, [facility] /EPI
--- NOTE | 2017-07-03 12:50 | EKG ---
[place] [address] ELECTROCARDIOGRAM REPORT Name: SCARLET RICHARDS Room: [address] ADM IN M.R.#: [id number] Admission: 07/02/17 Attend Phys: Duong Hanson MD, Discharge: Date of : 72 Report #: [id number] THIS REPORT FOR: //name// [facility] Test Date: 2017-07-02 Test Time: 16:23:17 Pat Name: SCARLET MAURICE Department: Room: [address] Gender: M Recruiting And Selection Consultant: [facility] : 1970 Requested By: Duong Hanson Order Number: [id number] Reading MD: Alan Christine Measurements Intervals [place] Rate: 105 P: 40 NV: 150 QRS: 71 QRSD: 97 T: 106 QT: 394 QTc: 521 Interpretive Statements Sinus tachycardia Anterior infarct, recent Prolonged QT interval Compared to ECG 06/27/2017 08:19:10 Q waves now present Sinus rhythm no longer present Myocardial infarct finding still present Electronically Signed On 07-03-2017 12:49:57 SALES PRODUCER by Alan Christine [email or web address] <ELECTRONICALLY SIGNED> By: Alan Christine MD, FACC 07/03/17 1249 1623 1623 Alan Christine MD, FAC /EPI
--- NOTE | 2017-07-03 12:53 | EKG ---
[place] [address] ELECTROCARDIOGRAM REPORT Name: SCARLET RICHARDS Room: [address] ADM IN M.R.#: [id number] Admission: 07/02/17 Attend Phys: Duong Hanson MD, Discharge: Date of : 72 Report #: [id number] THIS REPORT FOR: //name// [facility] Test Date: 2017-07-03 Test Time: 08:23:37 Pat Name: SCARLET RICHARDS Department: Room: [address] Gender: M [employer] Head: : 1970 Requested By: Duong Hanson Order Number: [id number] Sameer MD: Alan Christine Measurements Intervals [place] Rate: 95 P: 31 NC: 154 QRS: 60 QRSD: 90 T: 95 QT: 406 QTc: 511 Interpretive Statements Sinus rhythm Anterolateral infarct, acute (LAD) Prolonged QT interval Compared to ECG 06/27/2017 08:19:10 No significant changes Electronically Signed On 07-03-2017 12:53:37 QUARTZ CUTTER by Alan Christine [email or web address] <ELECTRONICALLY SIGNED> By: Alan Christine MD, [facility] 07/03/17 1253 2 2 Alan Christine MD, [facility] /EPI
--- NOTE | 2017-07-03 18:50 | NUR ---
RECEIVED REPORT FROM CHENCHO IN ICU. PT ARRIVED ON TELE FLOOR AT 1835, PLACED IN ROOM 226. PT A&O X4. DENIES PAIN, DISCOMFORT OR SHORTNESS OF AIR AT THIS TIME. PT STATES "I FEEL GOOD". PT REFUSED TO ALLOW BLOOD PRESSURE TO BE TAKEN. ALL OTHER VITAL SIGNS STABLE: TEMP 98.4, HR 105, O2 SAT 99% ON RA, RR 17. PT ORIENTED TO ROOM, BED AND CALL LIGHT. COMMUNICATES UNDERSTANDING. WILL GIVE REPORT TO CORK SORTER.
[2017-07-04 04:00] VITALS: BP 93/62
--- NOTE | 2017-07-04 04:27 | NUR ---
ASSUMED CARE OF PT AT 1930, NURSING ASSESSMENT COMPLETED AT START OF SHIFT, PT VOICED NO CONCERNS THIS SHIFT, DENIES CHEST PAIN. PT CONTINUES ON TELE MONITOR, TRACING SINUS SINUS RHYTHM THIS SHIFT, HOURLY ROUNDING COMPLETED, CALL LIGHT WITHIN REACH. PT PROGRESSING TOWARDS GOALS.
[2017-07-04 08:00] VITALS: BP 100/65
[2017-07-04 08:17] VITALS: BP 101/60
[2017-07-04] MEDS ORDERED: BRILINTA90 MG PO (10:33)
[2017-07-04 10:46] VITALS: BP 101/60
--- NOTE | 2017-07-04 13:00 | NUR ---
ASSUMED CARE OF PT THIS AM ASSESSED AND DOCUMENTED. SEE CHART. VSS WNL. PT D/C'D TO HOME. ALL CONSULTS OK WITH D/C. D/C'D CARDIAC MONITER AND IV. EDUCATION GIVEN RE: FOLLOW-UPS, MEDICATIONS, AND DRS ORDERS. SCRIPTS GIVEN EDUCATION ON BRELINTA PRINTED. ALL BELONGINGS PACKED UP AND LEFT WITH PT ACCOMPANIED BY A FRIEND AND STAFF.
--- NOTE | 2017-07-05 10:32 | CARD ---
[address] [address] CARDIAC CATH REPORT Name: SCARLET RICHARDS Room: [address]#: [id number] Admission: 07/02/17 Attend Phys: Duong Hanson MD, Discharge: 07/04/17 Date of : 72 Report #: [id number] THIS REPORT FOR: //name// APPROVED REPORT Patient Details Patient Status: ED Room #: Event Personnel Dr. Hanson Procedures Performed Left heart catheterization selective coronary arteriography and percutaneous coronary intervention with deployment of a drug-eluting stent at the site of 100% proximal LAD occlusion with prominent intraluminal thrombus Indication STEMI Risk Factors Family History, Hypercholesterolemia Previous Procedures/Diagnoses Previous PCI, Previous [place] Admission/Lab Medications/Medications given during procedure Aspirin, Glycoprotein IllbIlla Inhibitors, Platelet Aff. Inhib., Heparin Unfract. Procedure Narrative The patient was brought emergently to the Cardiac Catheterization Laboratory and was prepped and draped in a sterile manner. The right femoral was infiltrated with 1% Lidocaine subcutaneous anesthesia. A [place] 6 FR` sheath was inserted into the Right Femoral Artery. Coronary angiography was performed using coronary diagnostic catheters. The right coronary system was accessed and visualized with a Diagnostic 3DRC catheter. The left coronary system was accessed and visualized with a Diagnostic JL 4 catheter. The left ventricle was accessed and visualized with a Diagnostic catheter. Left ventricular/Aortic Valve gradient assessed . Pre-demployment femoral angiogram was performed . Closure device was deployed with a Fr Angioseal STS 6Fr. The patient tolerated the procedure well and there were no complications associated with the procedure. [place] [address] CARDIAC CATH REPORT Name: SCARLET RICHARDS Room: [address]#: [id number] Admission: 07/02/17 Attend Phys: Duong Hanson MD, Discharge: 07/04/17 Date of : 72 Report #: [id number] Intraoperative Conscious Sedation Sedation start time: 12:09 Case end Time: 13:10 Fentanyl mcg Fluoro Time: 34.8 minutes Dose: DAP 446178 cGycm2 2760 mGy Contrast Type and Amount: Visipaque 390 ml Diagnostic Cath Left Main 0% narrowing LAD 100% proximal LAD occlusion with prominent intraluminal thrombus and SOPHIE 0 flow to the distal vessel Diagonal 1 60% proximal first diagonal narrowing Circumflex Narrowing of the proximal portion of the first marginal branch Right Coronary Modest sized dominant vessel with 40% proximal mid and distal narrowings Left Ventriculography Left Ventriculography was not performed. Hemodynamics The aortic pressure is 161/113 mmHg with a mean of 134 mmHg. The left ventricular pressure is 159/7 mmHg with a mean of mmHg. The left ventricular end diastolic pressure is 27 mmHg. There was no gradient across the aortic valve upon pullback. PCI Technique Lesion Anticoagulation was achieved with Heparin. Patient [place] [address] units. Percutaneous coronary intervention was performed on the proximal left anterior descending artery segment. The lesion stenosis prior to intervention was 100% with SOPHIE 0 flow. A 6FR LAUNCHER JL4.0 Guide Catheter was used to engage the ostium. A Zipnosis: Ahalogy 300cm Interventional Guidewire was used to cross the lesion. BALLOON DILATION A Balloon catheter Mini Trek OTW 2X12 was inserted and inflated up to 16.00atm for 16seconds. Additional Inflation: 14.00atm for 9seconds. Additional Inflation: 18.00atm for 13seconds. STENT DEPLOYMENT A drug-eluting stent Xience Alpine RX 2.75X33 was inserted and inflated up to 12.00atm for 12seconds. Additional Inflation: 16.00atm [place] [address] CARDIAC CATH REPORT Name: SCARLET RICHARDS Room: [address]#: [id number] Admission: 07/02/17 Attend Phys: Duong Hanson MD, Discharge: 07/04/17 Date of : 72 Report #: [id number] for 15seconds. POST STENT DEPLOYMENT BALLOON DILATION A Balloon catheter NC Trek RX 3.0 X 12 was inserted and inflated up to 14.00atm for 13seconds. Additional Inflation: 17.00atm for 11seconds. Additional Inflation: 19.00atm for 15seconds. Final angiography reveals 10 % stenosis with SOPHIE 3 flow. PCI Technique Lesion 2 Percutaneous coronary intervention was performed on the distal left anterior descending artery segment. A 6FR LAUNCHER JL4.0 Guide Catheter was used to engage the ostium. A IG: [employer] Flex 300cm Interventional Guidewire was used to cross the lesion. Balloon Dilation A Balloon catheter Mini Trek RX 1.5 X 12 was inserted and inflated up to 8.00atm for 13seconds. Additional Inflation: 8.00atm for 8seconds. Additional Inflation: 12.00atm for 13seconds. Conclusion #[address] segment elevation myocardial infarction #2 significant coronary artery disease characterized by the following: A1 100% proximal LAD occlusion with prominent intraluminal thrombus with 60% proximal first diagonal narrowing noted after reperfusion of the LAD, C 40% narrowing of the proximal portion of the first marginal branch of the circumflex, D modest sized dominant right coronary artery with 40% proximal mid and distal narrowings #3 significant elevation of left ventricular end-diastolic pressure at rest #4 successful percutaneous coronary intervention with deployment of a drug-eluting stent at site of 100% proximal LAD occlusion with 10% residual narrowing following stent deployment and SOPHIE-3 flow the distal vessel with no residual thrombus Recommendations [place] [address] CARDIAC CATH REPORT Name: SCARLET RICHARDS Room: [address] IN [facility]#: [id number] Admission: 07/02/17 Attend Phys: Duong Hanson MD, Discharge: 07/04/17 Date of : 72 Report #: [id number] Cardiac Risk Reduction Program Aggressive Medical Therapy Medications Administered Aspirin (any) Ticagrelor <ELECTRONICALLY SIGNED> By: Duong Hanson MD, FACC 07/05/17 1032 103 103Jogennaro Hanson MD, FACC /INF
--- NOTE | 2017-07-05 10:48 | H ---
[place] [address] HISTORY AND PHYSICAL Name: SCARLET RICHARDS Room: [address]#: [id number] Admission: 07/02/17 Attend Phys: Duong Hanson MD, Discharge: 07/04/17 Date of : 72 Report #: [id number] THIS REPORT FOR: //name// CC: [facility] physician/PCP Rafa Hanson DATE OF SERVICE: 07/02/2017 HISTORY OF PRESENT ILLNESS: The patient is a 46-year-old male who presented last week with acute anterior wall myocardial infarction in the context of not taking antiplatelet therapy in the setting of prior LAD stenting. He underwent stenting of the LAD with dilatation of a prominent diagonal in the acute setting by Dr. Leal. He apparently by his description complied with dual antiplatelet therapy including aspirin and Plavix daily but developed recurrent chest discomfort which was severe this a.m. and he sought assistance in the Emergency Room. EKG there demonstrated ST segment elevation in the anterior precordial and high lateral leads suggesting acute anterior wall ST segment elevation myocardial infarction. He had severe pain when I assessed him in the ER and persistent EKG changes. Hemodynamics and rhythm are stable. Risk factors for coronary artery disease include prior cigarette smoking and hyperlipidemia. PHYSICAL EXAMINATION: GENERAL: Demonstrates an acutely distressed middle-aged male. VITAL SIGNS: Blood pressure 130/90, pulse rate is 78, respirations are 18 per minute. NECK: Jugular venous pressure is normal. CHEST: Clear anteriorly. CARDIAC: Reveals an S4 gallop. ABDOMEN: Soft. EXTREMITIES: Satisfactorily perfused without edema, clubbing or cyanosis. LABORATORY DATA: Electrocardiogram reveals acute anterior wall ST segment elevation myocardial infarction with high lateral involvement as well. IMPRESSION: 1. Acute anterior wall ST elevation myocardial infarction. 2. Coronary artery disease status post prior stenting of the left anterior descending; therefore, suspect acute stent thrombosis triggering the ST segment elevation infarction today. 3. Coronary artery disease. 4. Tobacco habituation. 5. [place] [address] HISTORY AND PHYSICAL Name: SCARLET RICHARDS Room: [address]#: [id number] Admission: 07/02/17 Attend Phys: Duong Hanson MD, Discharge: 07/04/17 Date of : 72 Report #: [id number] RECOMMENDATIONS: 1. The patient received aspirin and heparin in the ER. 2. We will plan emergent catheterization with consideration of acute coronary intervention contingent on results of the study. CRITICAL CARE TIME: 35 minutes, 13:15-13:50. <ELECTRONICALLY SIGNED> By: Duong Hanson MD, [facility] 07/05/17 1048 1359 1416Duong Hanson MD, FACC /nt
--- NOTE | 2017-07-05 10:49 | D ---
[address] [address] DISCHARGE SUMMARY Name: SCARLET RICHARDS Room: [address] IN M.R.#: [id number] Admission: 07/02/17 Attend Phys: Duong Hanson MD, Discharge: 07/04/17 Date of : 72 Report #: [id number] THIS REPORT FOR: //name// CC: [facility] physician/PCP Rafa Hanson DATE OF SERVICE: 07/04/2017 FINAL DISCHARGE DIAGNOSES: 1. Acute anterior wall ST segment elevation myocardial infarction. 2. Coronary artery disease, status post recent myocardial infarction. 3. Tobacco abuse. 4. Hyperlipoproteinemia. 5. Ischemic cardiomyopathy. PROCEDURES: 07/02/2017 -- left heart catheterization, selective coronary arteriotomy and percutaneous coronary intervention to the proximal LAD, totally occluded vessel in the context of acute anterior wall ST segment elevation infarction. The patient is a 46-year-old male with complex and aggressive coronary artery disease status post prior percutaneous coronary interventions, most recently approximately 1 week ago when he presented with stent thrombosis of the LAD and underwent intervention by Dr. Leal. He had been taking antiplatelet therapy, but was utilizing out of date Effient. He presented with recurrent stent thrombosis and had occlusion of the LAD on 07/02/2017. EKG revealed acute anterior wall ST segment elevation infarction. There is underlying hyperlipoproteinemia and tobacco habituation. He underwent emergent catheterization, which revealed total proximal LAD occlusion with prominent intraluminal thrombus. I performed stenting of the LAD, deploying one drug-eluting stent in the proximal LAD and post-dilating it to 3.25 mm with approximately a 10% residual narrowing. There was 50%-60% narrowing of the ostium of the diagonal that emanated from the stented LAD region. The patient did well post-procedurally. Troponin zulma to a peak of 47. Echocardiogram demonstrated an ejection fraction of 35%-40% with distal anterior, anteroapical, and distal septal hypo to akinesis. Remaining segments contracted normally. He ambulated in the hallways without difficulty and there was good hemostasis at the right femoral site of catheterization. Most recent laboratory pre-discharge revealed a hemoglobin of 14.2; white blood cell count of 18,000 with 398,000 platelets. Sodium 135, potassium 4.2, BUN 13, creatinine 0.9, glucose 153 [place] [address] DISCHARGE SUMMARY Name: SCARLET RICHARDS Room: [address]#: [id number] Admission: 07/02/17 Attend Phys: Duong Hanson MD, Discharge: 07/04/17 Date of : 72 Report #: [id number] He was discharged to home on the following medications: Aspirin 81 mg daily, atorvastatin 40 mg at bedtime, carvedilol 12.5 mg b.i.d., lisinopril 5 mg daily, spironolactone 25 mg daily, ticagrelor or Brilinta 90 mg b.i.d. with a 180 mg loading dose given periprocedurally, p.r.n. sublingual nitroglycerin. The patient is scheduled to return to see our nurse practitioner, Nidhi Davey on 07/09/2017 at 0930 with subsequent Cardiology followup at [facility]. <ELECTRONICALLY SIGNED> By: Duong Hanson MD, [facility] 07/05/17 1049 0923 [id number] Hanson MD, [facility] /nt
== END 2017-07-04 13:07 | disposition home or self-care (01) | DRG 247 ==
LOC: M.ERS 11:12 → M.CL 11:12 → M.ERS 11:34 → M.CL 11:41 → M.ICU 14:08 → M.TBA-CV 14:08 → M.ICU 14:22 → M.2W 07-03 18:24
PROVIDERS: Emergency Medicine Emergency Medical Services; ADMIT Internal Medicine
PROC: B211YZZ Fluoroscopy of Multiple Coronary Arteries using Other Contrast (ICD-10-PCS; principal; 2017-07-04)
PROC: 027034Z Dilation of Coronary Artery, One Artery with Drug-eluting Intraluminal Device, Percutaneous Approach (ICD-10-PCS; principal; 2017-07-04)
PROC: 4A023N7 Measurement of Cardiac Sampling and Pressure, Left Heart, Percutaneous Approach (ICD-10-PCS; principal; 2017-07-04)
DX: I21.09 ST elevation (STEMI) myocardial infarction involving other coronary artery of anterior wall (principal); F17.210 Nicotine dependence, cigarettes, uncomplicated; I25.10 Atherosclerotic heart disease of native coronary artery without angina pectoris; I25.5 Ischemic cardiomyopathy; E78.5 Hyperlipidemia, unspecified; Z71.6 Tobacco abuse counseling; Z95.5 Presence of coronary angioplasty implant and graft